=== PATIENT | female | born 1955 | race Caucasian/White ===

== ENCOUNTER 2016-09-18 10:46 | Emergency (ER) | payer BC ==
[~2016-09-18] VITALS: Ht 160 cm; Wt 81.9 kg
[~2016-09-18 10:46] MED LIST: BIOTIN PO; CALCIUM + VITA1 EAC2 PO; DAILY VITAMIN1 EAC8 PO; FISH OIL500 MG PO; LOW DOSE ASPIRI81 M1 PO; MELATONIN PO; VITAMIN E400 UNI6 PO
[2016-09-18 11:56] LABS: HEMATOCRIT 36.3 % (36.0-46.0); MCH 31.4 PG (29.0-34.0); MCHC 33.6 G/DL (30.0-36.0); MCV 93.3 FL (83-99); PLATELET COUNT 226 K/uL (156-360); RBC DIS.WIDTH-CV 12.7 % (11.8-14.6); RBC DIS.WIDTH-SD 41.9 % (39-53); RED BLOOD COUNT 3.89 M/uL (3.80-5.20); WHITE BLOOD COUNT 6.6 K/uL (4.1-10.2)
[2016-09-18 12:07] LABS: CHLORIDE 107 mEq/L (99-109); POTASSIUM 4.1 mEq/L (3.7-5.4); SODIUM 141 mEq/L (136-147)
[2016-09-18 12:09] LABS: GLUCOSE 98 mg/dL (70-99)
[2016-09-18 12:11] LABS: ANION GAP 11 MEQ/L (2-14)
[2016-09-18 12:13] LABS: GFR ESTIMATE (CALCULATED) > 59 mL/min/
[2016-09-18 12:14] LABS: UREA NITROGEN (BUN) 16 mg/dL (9-23)
[2016-09-18] MEDS ORDERED: PERCOCET 5/31 TABLET PO (12:23)
[2016-09-18 13:26] VITALS: BP 130/79
== END 2016-09-18 13:28 | disposition home or self-care (01) ==
LOC: EME 10:46
PROVIDERS: Emergency Medicine
PROC: 2W39X1Z Immobilization of Left Upper Extremity using Splint (ICD-10-PCS; principal; 2016-09-18)
DX: S42.352A Displaced comminuted fracture of shaft of humerus, left arm, initial encounter for closed fracture (principal); W01.198A Fall on same level from slipping, tripping and stumbling with subsequent striking against other object, initial encounter
CPT/HCPCS: 73030; 73060; 80048; 85027; 99281; 99285; J1170; J3010; J7030; J7050